=== PATIENT | male | born 1985 | race Caucasian/White ===

== ENCOUNTER 2017-04-06 09:02 | Emergency (ER) | payer SELFPAY ==
[2017-04-06] MEDS ORDERED: Acetaminophen/Codeine 30-300mg Tablet ONE (09:31)
[2017-04-06] MEDS ORDERED: Naproxen 500 MG TAB ONE (09:31)
--- NOTE | 2017-04-06 10:49 | RAD ---
2 VIEWS LEFT FOURTH FINGER: Date: 04/06/17 COMPARISON: None. HISTORY: Smashed finger, pain. FINDINGS: There is an obliquely oriented, minimally displaced and mildly comminuted fracture involving the tip of the fourth distal phalanx. There is no dislocation or interarticular extension. IMPRESSION: Fracture/deformity involving the tip of the fourth distal phalanx. POS: [id number]
== END 2017-04-06 10:08 | disposition home or self-care (01) ==
LOC: MADERS 09:02
DX: S62.635A Displaced fracture of distal phalanx of left ring finger, initial encounter for closed fracture (principal); W23.0XXA Caught, crushed, jammed, or pinched between moving objects, initial encounter

== ENCOUNTER 2017-04-07 13:48 | Outpatient (CLI) | payer OTHER ==
[2017-04-07 16:08] LABS: Bilirubin Negative (Negative); Blood, Urine Negative (Negative); Clarity Clear (Clear); Glucose, Urine (Dipstick) Negative (Negative); Leukocyte Negative (Negative); Nitrite Negative (Negative); Protein, Urine (Dipstick) Negative (Neg-Trace); Urobilinogen 0.2 mg/dL (0.2-1.0); pH, Urine 7.5 (5.0-9.0)
== END 2017-04-07 13:49 | disposition home or self-care (01) ==
LOC: MADLAB 13:48
DX: Z00.00 Encounter for general adult medical examination without abnormal findings (principal)
CPT/HCPCS: 36415; 81003

== ENCOUNTER 2017-04-14 11:25 | Outpatient (CLI) | payer OTHER | END 2017-04-14 11:26 | disposition home or self-care (01) | LOC: MADLAB 11:25 → MADOCC 11:26 | DX: Z00.00 Encounter for general adult medical examination without abnormal findings (principal) | CPT/HCPCS: 36415; 80305; G0477 ==